=== PATIENT | male | born 1970 | race Caucasian/White ===

== ENCOUNTER 2017-03-23 10:36 | Observation (INO) | payer OTHER ==
--- NOTE | 2017-03-23 11:04 | PDOC ---
History of Present Illness - General History Source: Patient Exam Limitations: No Limitations - History of Present Illness Initial Comments: 03/23/17 13:51 The patient is a 46 year old male, with a significant past medical history of Hyperlipidemia who presents to the emergency department with diarrhea and abdominal pain for the past 3 days. Patient reports lower abdominal pain, 4/10 in severity, non radiating associated nausea and diarrhea. Patient note bloody diarrhea (bright red) in the toilet when defecating. Patient had never experienced this before and presents to the ED for further evaluation.Patient denies any recent abx use, new changes in diet or recent travel. Patient denies chest pain, headache or dizziness. Patient denies fever, chills, vomit, or constipation. Patient denies dysuria, frequency, urgency or hematuria. Patient denies sick contacts or recent travel. Allergies: NKA Past surgical history: None Social history: Former smoker (20 yrs ago) PCP: Racheal Whitmore <Vangie Holland - Last Filed: 03/23/17 13:51> <Zara Cespedes - Last Filed: 03/23/17 16:43> - General Chief Complaint: Pain, Acute Stated Complaint: DIARRHEA/rectal bleeding Time Seen by Provider: 03/23/17 10:57 Past History <Vangie Holland - Last Filed: 03/23/17 13:51> - Past Medical History Anemia: No Asthma: No Cancer: No CVA: No COPD: No CHF: No Dementia: No Diabetes: No GI Disorders: No Disorders: No HTN: No Hypercholesterolemia: Yes Liver Disease: No Seizures: No Thyroid Disease: No - Surgical History Abdominal Surgery: No Appendectomy: No Cardiac Surgery: No Cholecystectomy: No Lung Surgery: No Neurologic Surgery: No Orthopedic Surgery: No - Suicide/Smoking/Psychosocial Hx Smoking History: Never smoked Have you smoked in the past 12 months: No Number of Cigarettes Smoked Daily: 1 If you are a former smoker, when did you quit?: 20 YRS AGO Cigars Per Day: 0 Information on smoking cessation initiated: No Hx Alcohol Use: No Drug/Substance Use Hx: No Substance Use Type: None <Zara Cespedes - Last Filed: 03/23/17 16:43> - Past Medical History Allergies/Adverse Reactions: Allergies Allergy/AdvReac Type Severity Reaction Status Date / Time No Known Allergies Allergy Verified 03/23/17 10:43 Home Medications: Ambulatory Orders Atorvastatin Ca [Lipitor -] 10 mg PO HS 11/12/14 Review of Systems - Review of Systems Able to Perform ROS?: Yes Comments:: 03/23/17 13:51 GENERAL/CONSTITUTIONAL: No fever or chills. No weakness. HEAD, EYES, EARS, NOSE AND THROAT: No change in vision. No ear pain or discharge. No sore throat. GASTROINTESTINAL: ++nausea, diarrhea. No vomiting or constipation. GENITOURINARY: No dysuria, frequency, or change in urination. CARDIOVASCULAR: No chest pain or shortness of breath. RESPIRATORY: No cough, wheezing, or hemoptysis. MUSCULOSKELETAL: No joint or muscle swelling or pain. No neck or back pain. SKIN: No rash NEUROLOGIC: No headache, vertigo, loss of consciousness, or change in strength/ sensation. ENDOCRINE: No increased thirst. No abnormal weight change. HEMATOLOGIC/LYMPHATIC: No anemia, easy bleeding, or history of blood clots. ALLERGIC/IMMUNOLOGIC: No hives or skin allergy. <Vangie Holland - Last Filed: 03/23/17 13:51> *Physical Exam - Vital Signs Last Vital Signs Temp Pulse Resp BP Pulse Ox 98.3 F 101 H 19 120/67 99 03/23/17 10:43 03/23/17 10:43 03/23/17 10:43 03/23/17 10:43 03/23/17 10:43 - Physical Exam Comments: 03/23/17 13:52 GENERAL: Awake, alert, and fully oriented, in no acute distress HEAD: No signs of trauma EYES: PERRLA, EOMI, sclera anicteric, conjunctiva clear ENT: Auricles normal inspection, hearing grossly normal, nares patent, oropharynx clear without exudates. Moist mucosa NECK: Normal ROM, supple, no lymphadenopathy, JVD, or masses LUNGS: Breath sounds equal, clear to auscultation bilaterally. No wheezes, and no crackles HEART: Regular rate and rhythm, normal S1 and S2, no murmurs, rubs or gallops ABDOMEN: +Lower abdominal tenderness. normoactive bowel sounds. No guarding, no rebound. No masses EXTREMITIES: Normal range of motion, no edema. No clubbing or cyanosis. No cords, erythema, or tenderness NEUROLOGICAL: Cranial nerves II through XII grossly intact. Normal speech, normal gait SKIN: Warm, Dry, normal turgor, no rashes or lesions noted. RECTAL: No fissures. No external hemorrhoids. No masses. Light brown stool in the vault. <Vangie Holland - Last Filed: 03/23/17 13:51> - Vital Signs Last Vital Signs Temp Pulse Resp BP Pulse Ox 98.3 F 101 H 19 120/67 99 03/23/17 10:43 03/23/17 10:43 03/23/17 10:43 03/23/17 10:43 03/23/17 10:43 <Zara Cespedes - Last Filed: 03/23/17 16:43> ED Treatment Course - LABORATORY CBC & Chemistry Diagram: 03/23/17 12:32 03/23/17 12:32 - ADDITIONAL ORDERS Additional order review: Laboratory Results 03/23/17 03/23/17 03/23/17 12:37 12:32 12:32 PT with INR INR PTT (Actin FS) Sodium 140 Potassium 3.8 Chloride 105 Carbon Dioxide 26 Anion Gap 9 BUN 12 Creatinine 0.9 D Creat Clearance w eGFR > 60 Random Glucose 103 Lactic Acid 1.4 Calcium 8.6 Total Bilirubin 0.7 D AST 14 L ALT 31 Alkaline Phosphatase 80 Total Protein 7.1 Albumin 3.5 Lipase 157 Stool Occult Blood Negative 03/23/17 12:32 PT with INR 12.90 H INR 1.14 PTT (Actin FS) 24.9 L Sodium Potassium Chloride Carbon Dioxide Anion Gap BUN Creatinine Creat Clearance w eGFR Random Glucose Lactic Acid Calcium Total Bilirubin AST ALT Alkaline Phosphatase Total Protein Albumin Lipase Stool Occult Blood 03/23/17 12:32 RBC 4.84 MCV 87.9 MCHC 32.9 RDW 13.6 MPV 7.7 D Neutrophils % 80.4 Lymphocytes % 11.4 D Monocytes % 7.2 Eosinophils % 0.7 Basophils % 0.3 - Medications Given in the ED: ED Medications Discontinued Medications Generic Name Dose Route Start Last Admin Trade Name Freq PRN Reason Stop Dose Admin Sodium Chloride 1,000 ml 03/23/17 11:54 03/23/17 12:36 Normal Saline - IV 03/23/17 11:55 1,000 ml ONCE ONE Administration <Vangie Holland - Last Filed: 03/23/17 13:51> - LABORATORY CBC & Chemistry Diagram: 03/23/17 12:32 03/23/17 12:32 <Zara Cespedes - Last Filed: 03/23/17 16:43> Medical Decision Making - Medical Decision Making 03/23/17 12:10 a/p: 46yo male with rectal bleeding x 3 days -will check labs, lactate given pain with bleeding -will obtain abd ct -ivf hydration 03/23/17 16:41 pt with pancolitis on ct will start abx cultures will be ordered by IM discussed with Dorothy - will accept pt to obs pt updated and agrees to stay for iv abx and GI eval <Zara Cespedes - Last Filed: 03/23/17 16:43> *DC/Admit/Observation/Transfer - Attestations Scribe Attestion: 03/23/17 13:52 Documentation prepared by Vangie Holland, acting as medical director/head team physician for Zara Cespedes DO <Vangie Holland - Last Filed: 03/23/17 13:51> - Discharge Dispostion Admit: Yes - Attestations Physician Attestion: 03/23/17 16:43 I, Dr. Zara Cespedes DO, attest that this document has been prepared under my direction and personally reviewed by me in its entirety. I further attest, that it accurately reflects all work, treatment, procedures and medical decision -making performed by me. <Zara Cespedes - Last Filed: 03/23/17 16:43> Diagnosis at time of Disposition: Pancolitis - Discharge Dispostion Condition at time of disposition: Fair - Referrals Referrals: Racheal Mayfield MD [Primary Care Provider] - - Patient Instructions - Post Discharge Activity
[2017-03-23] MEDS ORDERED: SODIUM CHLORIDE 0.9% 1000 ML INFUS.BAG IV ONE ×2 (11:54→16:11)
[2017-03-23 12:45] LABS: BASO % 0.3 % (0-2.0); EOS % 0.7 % (0-4.5); MCH 28.9 pg (25.7-33.7); MCHC 32.9 g/dl (32.0-35.9); MEAN CELL VOLUME 87.9 fl (80-96); MEAN PLT VOLUME 7.7 fl (7.5-11.1); NEUT % 80.4 % (42.8-82.8); PLATELET COUNT 213 K/MM3 (134-434); RDW 13.6 % (11.9-15.9); WHITE BLOOD COUNT 10.2 K/mm3 (4.0-10.0)
[2017-03-23 13:03] LABS: INR 1.14 (0.82-1.09); PROTHROMBIN TIME (PATIENT) 12.9 SEC (9.98-11.88)
[2017-03-23 13:06] LABS: ACTIVATED PTT 24.9 SECONDS (26.9-34.4)
[2017-03-23 13:08] LABS: ALBUMIN 3.5 g/dl (3.4-5.0); ANION GAP 9 (8-16); CALCIUM 8.6 mg/dL (8.5-10.1); CO2 26 mmol/L (21-32); CREATININE 0.9 mg/dL (0.7-1.3); GLUCOSE,RANDOM 103 mg/dL (74-106); SGOT/AST 14 U/L (15-37); SGPT/ALT 31 U/L (12-78)
[2017-03-23 13:09] LABS: ALK PHOS 80 U/L (45-117); BILIRUBIN,TOTAL 0.7 mg/dL (0.2-1.0); TOT PROT 7.1 g/dl (6.4-8.2)
[2017-03-23] MEDS ORDERED: METRONIDAZOLE 500 MG PREMIXED 500 MG/100 ML MG IVPB ONE ×2 (16:11→16:25)
[2017-03-23] MEDS ORDERED: LEVOFLOXACIN 750 MG IVPB 750 MG/150 ML BAG IVPB ONE ×2 (16:11→16:25)
[2017-03-23] MEDS ORDERED: ACETAMINOPHEN 325 MG TABLET (FP) PO PRN (16:36)
[2017-03-23] MEDS: DEXTROSE 5%-0.45% SALINE 1,000 ML IV SCH (17:20)
[2017-03-23 17:52] LABS: URINE APPEARANCE CLEAR; URINE BILIRUBIN NEGATIVE (NEGATIVE); URINE BLOOD NEGATIVE (NEGATIVE); URINE COLOR LTYELLOW; URINE GLUCOSE (UA) NEGATIVE (NEGATIVE); URINE KETONE NEGATIVE (NEGATIVE); URINE LEUK ESTERASE NEGATIVE (NEGATIVE); URINE NITRITE NEGATIVE (NEGATIVE); URINE PROTEIN NEGATIVE (NEGATIVE); URINE UROBILINOGEN NEGATIVE mg/dL (0.2-1.0)
[2017-03-23 21:12] LABS: URINE LEUK ESTERASE Negative (NEGATIVE)
[2017-03-23] MEDS: ATORVASTATIN CA 10 MG TABLET (FP) PO SCH (21:23)
[2017-03-23 22:12] VITALS: BMI 33.2
[2017-03-24] MEDS: DEXTROSE 5%-0.45% SALINE 1,000 ML IV SCH (03:41)
--- NOTE | 2017-03-24 07:02 | HP ---
CHIEF COMPLAINT: Diarrhea PCP: Dr. Bartlett HISTORY OF PRESENT ILLNESS: 47 year-old male with a PMH of hyperlipidemia. Presents to ED with a complaint of diarrhea x 3 days, and with episodes of bloody diarrhea x 1 day. Patient recalls eating egg whites and vegetables prior to the onset of diarrhea which others ate as well and did not become ill. Patient was seen at [facility] emergency department yesterday, treated and released. Patient states he has five episodes of diarrhea while in ED. Patient states he has had chills. Patient states he was once told he had a gastric ulcer but he has never had an EGD or colonoscopy. He takes daily omeprazole. ER course was notable for: (1) Hgb 14 (2) Occut stool negative (3) Levofloxacin IV x 1; metronidazole IV x 1 Recent Travel: No PAST MEDICAL HISTORY: Hyperlipidemia Gastric ulcer PAST SURGICAL HISTORY: None reported Social History: Smoking: no Alcohol: social Drugs: no Family History: Mother age 22 of unknown cause; father 45 ETOH-related ; brother a&w; sister with DM Allergies No Known Allergies Allergy (Verified 03/23/17 10:43) HOME MEDICATIONS: Home Medications Medication Instructions Recorded Atorvastatin Ca [Lipitor -] 10 mg PO HS 11/12/14 Aspirin [ASA -] 81 mg PO PRN PRN 03/23/17 Omeprazole 40 mg PO DAILY 03/23/17 REVIEW OF SYSTEMS CONSTITUTIONAL: Present: chills Absent: fever, diaphoresis, generalized weakness, malaise, loss of appetite, weight change HEENT: Absent: rhinorrhea, nasal congestion, throat pain, throat swelling, difficulty swallowing, mouth swelling, ear pain, eye pain, visual changes CARDIOVASCULAR: Absent: chest pain, syncope, palpitations, irregular heart rate, lightheadedness , peripheral edema RESPIRATORY: Absent: cough, shortness of breath, dyspnea with exertion, orthopnea, wheezing, stridor, hemoptysis GASTROINTESTINAL: Present: bloody diarrhea Absent: abdominal pain, abdominal distension, nausea, vomiting, constipation, melena, hematochezia GENITOURINARY: Absent: dysuria, frequency, urgency, hesitancy, hematuria, flank pain, genital pain MUSCULOSKELETAL: Absent: myalgia, arthralgia, joint swelling, back pain, neck pain SKIN: Absent: rash, itching, pallor HEMATOLOGIC/IMMUNOLOGIC: Absent: easy bleeding, easy bruising, lymphadenopathy, frequent infections ENDOCRINE: Absent: unexplained weight gain, unexplained weight loss, heat intolerance, cold intolerance NEUROLOGIC: Absent: headache, focal weakness or paresthesias, dizziness, unsteady gait, seizure, mental status changes, bladder or bowel incontinence PSYCHIATRIC: Absent: anxiety, depression, suicidal or homicidal ideation, hallucinations. PHYSICAL EXAMINATION Vital Signs - 24 hr 03/23/17 03/23/17 03/23/17 10:43 17:00 21:45 Temperature 98.3 F 98.2 F Pulse Rate 101 H 75 Pulse Rate [ 88 Left] Respiratory 19 16 20 Rate Blood Pressure 120/67 104/59 Blood Pressure 118/60 [Arm] O2 Sat by Pulse 99 99 98 Oximetry (%) 03/24/17 06:32 Temperature 98.1 F Pulse Rate 79 Pulse Rate [ Left] Respiratory 20 Rate Blood Pressure 98/60 Blood Pressure [Arm] O2 Sat by Pulse Oximetry (%) GENERAL: Awake, alert, and fully oriented, in no acute distress. HEAD: Normal with no signs of trauma. EYES: Pupils equal, round and reactive to light, extraocular movements intact, sclera anicteric, conjunctiva clear. No lid lag. EARS, NOSE, THROAT: Ears normal, nares patent, oropharynx clear without exudates. Moist mucous membranes. NECK: Normal range of motion, supple without lymphadenopathy, JVD, or masses. LUNGS: Breath sounds equal, clear to auscultation bilaterally. No wheezes, and no crackles. No accessory muscle use. HEART: Regular rate and rhythm, normal S1 and S2 without murmur, rub or gallop. ABDOMEN: Diffusely tender, no guarding, no rebound; + bowel sounds MUSCULOSKELETAL: Normal range of motion at all joints. No bony deformities or tenderness. No CVA tenderness. UPPER EXTREMITIES: 2+ pulses, warm, well-perfused. No cyanosis. No clubbing. No peripheral edema. LOWER EXTREMITIES: 2+ pulses, warm, well-perfused. No calf tenderness. No peripheral edema. NEUROLOGICAL: Cranial nerves II-XII intact. Normal speech. Laboratory Results - last 24 hr 03/23/17 03/23/17 03/23/17 12:32 12:32 12:32 WBC RBC Hgb Hct MCV MCH MCHC RDW Plt Count MPV Neutrophils % Lymphocytes % Monocytes % Eosinophils % Basophils % PT with INR 12.90 H INR 1.14 PTT (Actin FS) 24.9 L Sodium 140 Potassium 3.8 Chloride 105 Carbon Dioxide 26 Anion Gap 9 BUN 12 Creatinine 0.9 D Creat Clearance w eGFR > 60 Random Glucose 103 Lactic Acid 1.4 Calcium 8.6 Total Bilirubin 0.7 D AST 14 L ALT 31 Alkaline Phosphatase 80 Total Protein 7.1 Albumin 3.5 Lipase 157 Urine Color Urine Appearance Urine pH Urine Protein Urine Glucose (UA) Urine Ketones Urine Blood Urine Nitrite Urine Bilirubin Urine Urobilinogen Ur Leukocyte Esterase Stool Occult Blood Blood Type Antibody Screen 03/23/17 03/23/17 03/23/17 12:32 12:37 12:37 WBC 10.2 H RBC 4.84 Hgb 14.0 Hct 42.6 MCV 87.9 MCH 28.9 MCHC 32.9 RDW 13.6 Plt Count 213 MPV 7.7 D Neutrophils % 80.4 Lymphocytes % 11.4 D Monocytes % 7.2 Eosinophils % 0.7 Basophils % 0.3 PT with INR INR PTT (Actin FS) Sodium Potassium Chloride Carbon Dioxide Anion Gap BUN Creatinine Creat Clearance w eGFR Random Glucose Lactic Acid Calcium Total Bilirubin AST ALT Alkaline Phosphatase Total Protein Albumin Lipase Urine Color Urine Appearance Urine pH Urine Protein Urine Glucose (UA) Urine Ketones Urine Blood Urine Nitrite Urine Bilirubin Urine Urobilinogen Ur Leukocyte Esterase Stool Occult Blood Negative Blood Type A POSITIVE Antibody Screen Negative 03/23/17 03/23/17 12:46 17:15 WBC RBC Hgb Hct MCV MCH MCHC RDW Plt Count MPV Neutrophils % Lymphocytes % Monocytes % Eosinophils % Basophils % PT with INR INR PTT (Actin FS) Sodium Potassium Chloride Carbon Dioxide Anion Gap BUN Creatinine Creat Clearance w eGFR Random Glucose Lactic Acid Calcium Total Bilirubin AST ALT Alkaline Phosphatase Total Protein Albumin Lipase Urine Color Ltyellow Urine Appearance Clear Urine pH 5.0 Urine Protein Negative Urine Glucose (UA) Negative Urine Ketones Negative Urine Blood Negative Urine Nitrite Negative Urine Bilirubin Negative Urine Urobilinogen Negative Ur Leukocyte Esterase Negative Stool Occult Blood Blood Type A POSITIVE Antibody Screen ASSESSMENT/PLAN 47 year-old male with a PMH of hyperlipidemia and gastric ulcer. Placed on observation for diarrhea. Infectious Diarrhea --patient reports some episodes with blood, some with no blood --Hgb stable, occult stool negative --continue levofloxacin and flagyl --IV fluids --GI consult pending Hyperlipidemia --continue Lipitor Gastric ulcer --continue protonix
--- NOTE | 2017-03-24 07:57 | CON.GI ---
Consult Consult Specialty:: GI - History of Present Illness History of Present Illness: A 46 yom with dyslipidemia developed blood diarrhea and lower abdominal pain 3 days ago. Acute onset, w/o fever, chills, nausea, vomiting, rash, joint, back, eye symptoms. No jaundice, dysphagia, odynophagia, or dyspepsia. No hx of weigth loss, chronic diarrhea, or GI issues in general. Frequent fast food. [facility]s [facility]. No exposure to ill, traveling outside of the . No new medications, ETOH, elicit drugs. No family histroy of IBD. - History Source History Provided By: Patient - Past Medical History Cardio/Vascular: Yes: Hyperlipdemia - Past Surgical History Past Surgical History: Yes: None - Alcohol/Substance Use Hx Alcohol Use: Yes (twice a week) - Smoking History Smoking history: Former smoker Have you smoked in the past 12 months: No Aproximately how many cigarettes per day: 1 If you are a former smoker, when did you quit?: 20 YRS AGO Home Medications - Allergies Allergies/Adverse Reactions: Allergies Allergy/AdvReac Type Severity Reaction Status Date / Time No Known Allergies Allergy Verified 03/23/17 10:43 - Home Medications Home Medications: Ambulatory Orders Atorvastatin Ca [Lipitor -] 10 mg PO HS 11/12/14 Aspirin [ASA -] 81 mg PO PRN PRN 03/23/17 Omeprazole 40 mg PO DAILY 03/23/17 Family Disease History - Family Disease History Family History: Unremarkable Review of Systems Findings/Remarks: please refer to H&P and HPI Physical Exam-GI Vital Signs: Vital Signs Temperature 98.1 F 03/24/17 06:32 Pulse Rate 79 03/24/17 06:32 Respiratory Rate 20 03/24/17 06:32 Blood Pressure 98/60 03/24/17 06:32 O2 Sat by Pulse Oximetry (%) 98 03/23/17 21:45 Constitutional: Yes: Well Nourished, No Distress, Calm Eyes: Yes: Conjunctiva Clear HENT: Yes: Atraumatic Neck: Yes: Supple Cardiovascular: Yes: Regular Rate and Rhythm Respiratory: Yes: Regular ...Auscultate: Yes: Normoactive Bowel Sounds ...Palpate: Yes: Soft, Tenderness (generalized, lower abdomen). No: Firm/Rigid , Guarding Neurological: Yes: Alert, Oriented Labs: INR, PTT INR 1.14 (0.82-1.09) 03/23/17 12:32 CBCD WBC 6.6 K/mm3 (4.0-10.0) D 03/24/17 06:30 RBC 4.27 M/mm3 (4.00-5.60) 03/24/17 06:30 Hgb 12.5 GM/dL (11.7-16.9) D 03/24/17 06:30 Hct 37.5 % (35.4-49) 03/24/17 06:30 MCV 87.8 fl (80-96) 03/24/17 06:30 MCHC 33.5 g/dl (32.0-35.9) 03/24/17 06:30 RDW 13.8 % (11.9-15.9) 03/24/17 06:30 Plt Count 200 K/MM3 (134-434) 03/24/17 06:30 MPV 8.0 fl (7.5-11.1) 03/24/17 06:30 CMP Sodium 141 mmol/L (136-145) 03/24/17 06:30 Potassium 3.4 mmol/L (3.5-5.1) L 03/24/17 06:30 Chloride 109 mmol/L (98-107) H 03/24/17 06:30 Carbon Dioxide 23 mmol/L (21-32) 03/24/17 06:30 Anion Gap 9 (8-16) 03/24/17 06:30 BUN 6 mg/dL (7-18) L D 03/24/17 06:30 Creatinine 0.7 mg/dL (0.7-1.3) D 03/24/17 06:30 Creat Clearance w eGFR > 60 (>60) 03/24/17 06:30 Calcium 7.4 mg/dL (8.5-10.1) L 03/24/17 06:30 Total Bilirubin 0.8 mg/dL (0.2-1.0) 03/24/17 06:30 AST 8 U/L (15-37) L D 03/24/17 06:30 ALT 22 U/L (12-78) D 03/24/17 06:30 Alkaline Phosphatase 66 U/L (45-117) 03/24/17 06:30 Total Protein 5.7 g/dl (6.4-8.2) L 03/24/17 06:30 Albumin 2.7 g/dl (3.4-5.0) L D 03/24/17 06:30 Imaging - Results Cat Scan: Report Reviewed Problem List - Problems (1) Hematochezia Code(s): K92.1 - MELENA (2) Pancolitis Code(s): K51.00 - ULCERATIVE (CHRONIC) PANCOLITIS WITHOUT COMPLICATIONS Assessment/Plan Acute onset. Likely infectious. Doubt ischemia, or IBD at this point. Will need colonsocopy in 4-6 weeks, or sooner if not improving Follow stool work up BRAT diet PO hydration Observe
[2017-03-24 08:12] LABS: BASO % 0.4 % (0-2.0); EOS % 4.3 % (0-4.5); MCH 29.4 pg (25.7-33.7); MCHC 33.5 g/dl (32.0-35.9); MEAN CELL VOLUME 87.8 fl (80-96); NEUT % 59.7 % (42.8-82.8); PLATELET COUNT 200 K/MM3 (134-434); RDW 13.8 % (11.9-15.9); WHITE BLOOD COUNT 6.6 K/mm3 (4.0-10.0)
[2017-03-24 08:46] LABS: ALBUMIN 2.7 g/dl (3.4-5.0); ALK PHOS 66 U/L (45-117); ANION GAP 9 (8-16); BILIRUBIN,TOTAL 0.8 mg/dL (0.2-1.0); CALCIUM 7.4 mg/dL (8.5-10.1); CO2 23 mmol/L (21-32); CREATININE 0.7 mg/dL (0.7-1.3); GLUCOSE,RANDOM 134 mg/dL (74-106); MAGNESIUM 2.1 mg/dL (1.8-2.4); SGOT/AST 8 U/L (15-37); SGPT/ALT 22 U/L (12-78); TOT PROT 5.7 g/dl (6.4-8.2)
[2017-03-24] MEDS ORDERED: POTASSIUM CHLORIDE TABS 20 MEQ TABLET.ER (FP) PO ONE (13:34)
--- NOTE | 2017-03-24 13:59 | PN ---
Physical Exam: SUBJECTIVE: Patient seen and examined. One episode of diarrhea overnight and two today. Feels better. OBJECTIVE: Vital Signs Period Temp Pulse Resp BP Sys/Cook Pulse Ox Last 24 Hr 98.1 F-98.2 F 75-88 16-20 98-118/59-60 98-99 GENERAL: Awake, alert, and fully oriented, in no acute distress. LUNGS: Breath sounds equal, clear to auscultation bilaterally. No wheezes, and no crackles. No accessory muscle use. HEART: Regular rate and rhythm, normal S1 and S2 without murmur, rub or gallop. ABDOMEN: Mild diffuse tenderness, no guarding, no rebound; + bowel sounds MUSCULOSKELETAL: Normal range of motion at all joints. No bony deformities or tenderness. No CVA tenderness. UPPER EXTREMITIES: 2+ pulses, warm, well-perfused. No cyanosis. No clubbing. No peripheral edema. LOWER EXTREMITIES: 2+ pulses, warm, well-perfused. No calf tenderness. No peripheral edema. NEUROLOGICAL: Cranial nerves II-XII intact. Normal speech. Laboratory Results - last 24 hr 03/23/17 03/23/17 03/23/17 12:37 12:46 17:15 WBC RBC Hgb Hct MCV MCH MCHC RDW Plt Count MPV Neutrophils % Lymphocytes % Monocytes % Eosinophils % Basophils % Sodium Potassium Chloride Carbon Dioxide Anion Gap BUN Creatinine Creat Clearance w eGFR Random Glucose Calcium Magnesium Total Bilirubin AST ALT Alkaline Phosphatase Total Protein Albumin Lipase Urine Color Ltyellow Urine Appearance Clear Urine pH 5.0 Urine Protein Negative Urine Glucose (UA) Negative Urine Ketones Negative Urine Blood Negative Urine Nitrite Negative Urine Bilirubin Negative Urine Urobilinogen Negative Ur Leukocyte Esterase Negative Blood Type A POSITIVE A POSITIVE Antibody Screen Negative 03/24/17 03/24/17 06:30 06:30 WBC 6.6 D RBC 4.27 Hgb 12.5 D Hct 37.5 MCV 87.8 MCH 29.4 MCHC 33.5 RDW 13.8 Plt Count 200 MPV 8.0 Neutrophils % 59.7 D Lymphocytes % 25.7 D Monocytes % 9.9 Eosinophils % 4.3 D Basophils % 0.4 Sodium 141 Potassium 3.4 L Chloride 109 H Carbon Dioxide 23 Anion Gap 9 BUN 6 L D Creatinine 0.7 D Creat Clearance w eGFR > 60 Random Glucose 134 H D Calcium 7.4 L Magnesium 2.1 Total Bilirubin 0.8 AST 8 L D ALT 22 D Alkaline Phosphatase 66 Total Protein 5.7 L Albumin 2.7 L D Lipase 153 Urine Color Urine Appearance Urine pH Urine Protein Urine Glucose (UA) Urine Ketones Urine Blood Urine Nitrite Urine Bilirubin Urine Urobilinogen Ur Leukocyte Esterase Blood Type Antibody Screen Active Medications Generic Name Dose Route Start Last Admin Trade Name Freq PRN Reason Stop Dose Admin Acetaminophen 650 mg 03/23/17 16:36 03/23/17 21:23 Tylenol - PO 650 mg Q6H PRN Administration FEVER OR PAIN Atorvastatin Calcium 10 mg 03/23/17 22:00 03/23/17 21:23 Lipitor - PO 10 mg HS LUPIS Administration Levofloxacin 500 mg 03/24/17 14:00 Levaquin - PO DAILY@0600 [facility] Metronidazole 500 mg 03/24/17 14:00 Flagyl - PO TID [facility] Pantoprazole Sodium 40 mg 03/24/17 14:00 Protonix - PO DAILY [facility] Microbiology 03/24/17 10:15 Stool Clostridium difficile Antigen (AZRA) - Final 03/24/17 10:15 Stool Clostridium difficile Toxin Assay - Final ASSESSMENT/PLAN 47 year-old male with a PMH of hyperlipidemia and gastric ulcer. Placed on observation for diarrhea. Infectious Diarrhea --patient reports some episodes with blood, some with no blood --seen and evaluated by GI, likely infectious process but no fever, no leukocytosis --Hgb stable, occult stool negative --c. diff negative --switch to PO levofloxacin and flagyl for discharge planning --supportive care: PO hydration, BRAT diet Hyperlipidemia --continue Lipitor Gastric ulcer --continue protonix DVT prophylaxis: oob, ambulation Dispo: continue to observe, likely discharge in am on PO antibiotics. Follow up with Dr. Villar. Visit type - Emergency Visit Emergency Visit: Yes ED Registration Date: 03/23/17 Care time: The patient presented to the Emergency Department on the above date and was hospitalized for further evaluation of their emergent condition. - New Patient This patient is new to me today: No - Critical Care Critical Care patient: No
[2017-03-24] MEDS: LEVOFLOXACIN 500 MG TABLET (FP) PO SCH (14:02)
[2017-03-24] MEDS: metroNIDAZOLE 250 MG TABLET PO SCH ×2 (14:02→21:09)
[2017-03-24] MEDS: PANTOPRAZOLE 40 MG TABLET (FP) PO SCH (14:03)
[2017-03-24] MEDS: ATORVASTATIN CA 10 MG TABLET (FP) PO SCH (21:09)
[2017-03-25] MEDS: metroNIDAZOLE 250 MG TABLET PO SCH ×3 (05:54→21:57)
[2017-03-25] MEDS: LEVOFLOXACIN 500 MG TABLET (FP) PO SCH (05:54)
[2017-03-25] MEDS: PANTOPRAZOLE 40 MG TABLET (FP) PO SCH (10:57)
--- NOTE | 2017-03-25 13:09 | PN ---
Progress Note, Physician History of Present Illness: Chart reviewed. No events. Bms better. No hematochezia - Current Medication List Current Medications: Active Medications Acetaminophen (Tylenol -) 650 mg PO Q6H PRN PRN Reason: FEVER OR PAIN Last Admin: 03/23/17 21:23 Dose: 650 mg Atorvastatin Calcium (Lipitor -) 10 mg PO HS [facility] Last Admin: 03/24/17 21:09 Dose: 10 mg Levofloxacin (Levaquin -) 500 mg PO DAILY@0600 [facility] Last Admin: 03/25/17 05:54 Dose: 500 mg Metronidazole (Flagyl -) 500 mg PO TID [facility] Last Admin: 03/25/17 05:54 Dose: 500 mg Pantoprazole Sodium (Protonix -) 40 mg PO DAILY [facility] Last Admin: 03/25/17 10:57 Dose: 40 mg - Objective Vital Signs: Vital Signs Temperature 97.5 F L 03/25/17 06:29 Pulse Rate 66 03/25/17 06:29 Respiratory Rate 20 03/25/17 06:29 Blood Pressure 96/58 03/25/17 06:29 O2 Sat by Pulse Oximetry (%) 98 03/24/17 22:00 Constitutional: Yes: No Distress, Calm HENT: Yes: Atraumatic Neck: Yes: Supple Cardiovascular: Yes: Regular Rate and Rhythm Respiratory: Yes: Regular Gastrointestinal: Yes: Normal Bowel Sounds, Soft. No: Melena, Rectal Bleeding, Tenderness, Vomiting Neurological: Yes: Alert, Oriented Labs: CBC, BMP 03/24/17 06:30 03/24/17 06:30 INR, PTT INR 1.14 (0.82-1.09) 03/23/17 12:32 Problem List - Problems (1) Hematochezia Code(s): K92.1 - MELENA (2) Pancolitis Code(s): K51.00 - ULCERATIVE (CHRONIC) PANCOLITIS WITHOUT COMPLICATIONS Assessment/Plan Acute onset. Likely infectious. Doubt ischemia, or IBD at this point. stool work up negative BRAT diet discussed with the patient PO hydration Observe Will need colonoscopy in 4-6 weeks
--- NOTE | 2017-03-25 20:00 | PN ---
Physical Exam: SUBJECTIVE: Patient seen and examined. He has lower abdominal pain, he is tolerating brat diet. no nausea, vomiting, further diarrhea, fever, chills OBJECTIVE: Vital Signs Period Temp Pulse Resp BP Sys/Cook Pulse Ox Last 24 Hr 97.5 F-98.1 F 66-78 16-20 96-109/57-61 98 Pe Neuro: alert, awake, cn 2-12intact Pulm: Clear, regular no sob CV: s1 s2 rrr Abd: lower abd tenderness w/ palpation,soft +bs Ext: no le edema Active Medications Generic Name Dose Route Start Last Admin Trade Name Freq PRN Reason Stop Dose Admin Acetaminophen 650 mg 03/23/17 16:36 03/23/17 21:23 Tylenol - PO 650 mg Q6H PRN Administration FEVER OR PAIN Atorvastatin Calcium 10 mg 03/23/17 22:00 03/24/17 21:09 Lipitor - PO 10 mg HS LUPIS Administration Levofloxacin 500 mg 03/24/17 14:00 03/25/17 05:54 Levaquin - PO 500 mg DAILY@0600 LUPIS Administration Metronidazole 500 mg 03/24/17 14:00 03/25/17 13:47 Flagyl - PO 500 mg TID LUPIS Administration Pantoprazole Sodium 40 mg 03/24/17 14:00 03/25/17 10:57 Protonix - PO 40 mg DAILY LUPIS Administration Assessment: 47 year old male with a PMH of hyperlipidemia and gastric ulcer admitted with abdominal pain Plan: 1. Pancolitis - Continue Levaquin/flagyl total of 10 days - Continue protonix - If abd pain less in am can dc home with outpt colonoscopy in 4-6 weeks - BRAT diet moving forward - Hgb stable, occult stool negative - C. diff negative 2. HLD -Continue Lipitor 3. Gastric ulcer - Continue protonix 4. DVT prophylaxis: oob, ambulation Visit type - Emergency Visit Emergency Visit: Yes ED Registration Date: 03/23/17 Care time: The patient presented to the Emergency Department on the above date and was hospitalized for further evaluation of their emergent condition. - New Patient This patient is new to me today: Yes Date on this admission: 03/25/17 - Critical Care Critical Care patient: No
[2017-03-25] MEDS: ATORVASTATIN CA 10 MG TABLET (FP) PO SCH (21:57)
[2017-03-26] MEDS ORDERED: DEXTROSE 5%-NORMAL SALINE 1,000 ML IV SCH (06:45)
[2017-03-26] MEDS: metroNIDAZOLE 250 MG TABLET PO SCH (06:57)
[2017-03-26] MEDS: LEVOFLOXACIN 500 MG TABLET (FP) PO SCH (06:57)
[2017-03-26] MEDS: PANTOPRAZOLE 40 MG TABLET (FP) PO SCH (10:13)
--- NOTE | 2017-03-26 10:54 | DS ---
Physical Exam: SUBJECTIVE: Patient seen and examined. he feels well, abd tenderness improved from yesterday, ready to go home OBJECTIVE: Vital Signs Period Temp Pulse Resp BP Sys/Cook Pulse Ox Last 24 Hr 97.5 F-98.4 F 67-78 16-20 100-109/56-61 98 PE Neuro: alert, awake, cn 2-12intact Pulm: Clear, regular no sob CV: s1 s2 rrr Abd: lower abd tenderness - improve, + bs soft Ext: no le edema HOSPITAL COURSE: Date of Admission:03/23/17 Date of Discharge: 03/26/17 Minutes to complete discharge: 38 Discharge Summary Reason For Visit: ULCERATIVE PANCOLITIS Current Active Problems Hematochezia (Acute) Pancolitis (Acute) Hospital Course: Initial Hospital Course: Briefly, this 47 year old male with a PMH of hyperlipidemia presented to the ED with a complaint of diarrhea x 3 days, and with episodes of bloody diarrhea x 1 day. Patient recalled eating egg whites and vegetables prior to the onset of diarrhea which others ate as well and did not become ill. Seen at [facility] emergency department the day prior to admission he was treated and released. Subsequently sustained x5 episodes of diarrhea while in ED, associated wih chills. Patient states he was once told he had a gastric ulcer but he has never had an EGD or colonoscopy. He takes daily omeprazole. Subsequent Hospital Course/Progress Note/DC summary: Plan: 1. Pancolitis - Continue Levaquin/flagyl total of 10 days - Continue protonix - Outpt colonoscopy in 4-6 weeks - BRAT diet moving forward - Hgb stable, occult stool negative - C. diff negative - GI referral made 2. HLD -Continue Lipitor 3. Gastric ulcer - Continue protonix Dispo: - Home with above meds and follow up - Pt aware and agrees to above plan Condition: Stable - Instructions Diet, Activity, Other Instructions: Please return to the ED for any new, persistent, or worsening symptoms. Follow up with your PCP in 1 week Follow up with Dr. Villar (GI doctor) in 4-6 weeks for colonoscopy Complete antibiotics as directed Continue eating the BRAT diet Referrals: Jesse Villar MD [Staff Physician] - Racheal Mayfield MD [Primary Care Provider] - Disposition: HOME - Home Medications Comprehensive Discharge Medication List: Ambulatory Orders Atorvastatin Ca [Lipitor -] 10 mg PO HS 11/12/14 Aspirin [ASA -] 81 mg PO PRN PRN 03/23/17 Omeprazole 40 mg PO DAILY 03/23/17 Levofloxacin [Levaquin -] 500 mg PO DAILY #7 tablet 03/26/17 Metronidazole [Flagyl -] 500 mg PO TID #24 tablet 03/26/17 This patient is new to me today: No Emergency Visit: Yes ED Registration Date: 03/23/17 Care time: The patient presented to the Emergency Department on the above date and was hospitalized for further evaluation of their emergent condition. Critical Care patient: No - Discharge Referral Referred to [facility] Med P.C.: No
--- NOTE | 2017-03-26 11:34 | PN ---
Progress Note, Physician History of Present Illness: Chart reviewed. No events. Bms better. No hematochezia - Current Medication List Current Medications: Active Medications Acetaminophen (Tylenol -) 650 mg PO Q6H PRN PRN Reason: FEVER OR PAIN Last Admin: 03/23/17 21:23 Dose: 650 mg Atorvastatin Calcium (Lipitor -) 10 mg PO HS [facility] Last Admin: 03/25/17 21:57 Dose: 10 mg Levofloxacin (Levaquin -) 500 mg PO DAILY@0600 [facility] Last Admin: 03/26/17 06:57 Dose: 500 mg Metronidazole (Flagyl -) 500 mg PO TID [facility] Last Admin: 03/26/17 06:57 Dose: 500 mg Pantoprazole Sodium (Protonix -) 40 mg PO DAILY [facility] Last Admin: 03/26/17 10:13 Dose: 40 mg - Objective Vital Signs: Vital Signs Temperature 98.3 F 03/26/17 06:00 Pulse Rate 67 03/26/17 06:00 Respiratory Rate 18 03/26/17 06:00 Blood Pressure 107/56 03/26/17 06:00 O2 Sat by Pulse Oximetry (%) 98 03/26/17 02:00 Constitutional: Yes: No Distress, Calm Eyes: Yes: Conjunctiva Clear HENT: Yes: Atraumatic Neck: Yes: Supple Cardiovascular: Yes: Regular Rate and Rhythm Respiratory: Yes: Regular Gastrointestinal: Yes: Soft. No: Melena, Rectal Bleeding, Tenderness, Vomiting Neurological: Yes: Alert, Oriented Labs: CBC, BMP 03/24/17 06:30 03/24/17 06:30 INR, PTT INR 1.14 (0.82-1.09) 03/23/17 12:32 Problem List - Problems (1) Hematochezia Code(s): K92.1 - MELENA Assessment/Plan BRAT diet, advance as tolerated PO hydration complete total of 10 days of Abx Follow up as op in 1 week. Will need colonoscopy in 4-6 weeks discussed with the patient
[2017-03-26 12:11] VITALS: BP 111/70; PULSE 63; TEMP 98
== END 2017-03-26 12:24 | disposition home or self-care (01) ==
LOC: JER 10:36 → JERBED 16:43 → J8W 18:55
PROVIDERS: ADMIT Hospitalist; ATTEND Nurse Practitioner Acute Care
PROC: 3E03329 Introduction of Other Anti-infective into Peripheral Vein, Percutaneous Approach (ICD-10-PCS; principal; 2017-03-23)
PROC: 3E0337Z Introduction of Electrolytic and Water Balance Substance into Peripheral Vein, Percutaneous Approach (ICD-10-PCS; 2017-03-23)
DX: K51.00 Ulcerative (chronic) pancolitis without complications (principal); A09 Infectious gastroenteritis and colitis, unspecified; E78.5 Hyperlipidemia, unspecified; K25.9 Gastric ulcer, unspecified as acute or chronic, without hemorrhage or perforation; K92.1 Melena
CPT/HCPCS: 36415; 74177-TC; 80053; 81003; 82272; 83605; 83690; 83735; 85025; 85610; 85730; 86850; 86900; 86901; 87040; 87086; 87324; 87449; 96365; 96376; 99284-25; G0378

== ENCOUNTER 2017-08-18 15:24 | Emergency (ER) | payer OTHER ==
--- NOTE | 2017-08-18 15:29 | PDOC ---
Rapid Medical Evaluation Time Seen by Provider: 08/18/17 15:26 Medical Evaluation: Allergies Allergy/AdvReac Type Severity Reaction Status Date / Time No Known Allergies Allergy Verified 03/23/17 10:43 08/18/17 15:26 I have performed a brief in-person evaluation of this patient. The patient presents with a chief complaint of: chest pain worse w/ palpation and movement since yesterday. H/o HLD Pertinent physical exam findings:stable w/ reproducible ttp to L chest I have ordered the following:ekg The patient will proceed to the ED for further evaluation. Discharge Disposition - Diagnosis Chest pain Qualifiers: Chest pain type: unspecified Qualified Code(s): R07.9 - Chest pain, unspecified - Referrals - Patient Instructions - Post Discharge Activity
[2017-08-18 15:30] VITALS: BP 132/83; PULSE 73; TEMP 97.9; BMI 32.5
--- NOTE | 2017-08-18 15:56 | PDOC ---
History of Present Illness - General History Source: Patient Exam Limitations: No Limitations - History of Present Illness Initial Comments: 08/18/17 16:14 The patient is a 46 year old male, with a significant past medical history of hyperlipidemia, who presents to the emergency department with intermittent left sided chest pain since 7PM yesterday with associated nausea. 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 He reportedly developed a sudden onset of left sided anterior chest pain after leaving work. He reportedly went home and tried to sleep, but reports trouble sleeping secondary to the pain. He reports the pain is localized, nonradiating, 5/10 and pressure like. He states the pain went away this morning, but reports the pain presented again after a few hours of working in the kitchen today. He states he experienced chest pain in the past, but that the last time was sharp pain with associated SOB. He denies SOB or sharp pain. He also states he is not fatigues today like he was with his last episode of chest pain. Secondarily, he states he is in the process of scheduling an endoscopy with his GI doctor for a possible ulcer. He denies, shortness of breath, headache and dizziness. He denies fever, chills , vomit, diarrhea and constipation. He denies dysuria, frequency, urgency and hematuria. Allergies: NKDA Past surgical history: none reported Family Hx: mother of KS at age 26 Social history: social ETOH. no tobacco or illicit drugs PCP: Tran Stoll <Britney Rodas - Last Filed: 08/18/17 16:14> - General History Source: Patient Exam Limitations: No Limitations <Cinthya Ledezma - Last Filed: 08/18/17 18:17> - General Chief Complaint: Chest Pain Stated Complaint: CHEST PAIN Time Seen by Provider: 08/18/17 15:26 Past History <Britney Rodas - Last Filed: 08/18/17 16:14> - Past Medical History Anemia: No Asthma: No Cancer: No Cardiac Disorders: Yes (occassional chest pain) CVA: No COPD: No CHF: No Dementia: No Diabetes: No GI Disorders: No Disorders: No HTN: No Hypercholesterolemia: Yes Liver Disease: No Seizures: No Thyroid Disease: No - Surgical History Abdominal Surgery: No Appendectomy: No Cardiac Surgery: No Cholecystectomy: No Lung Surgery: No Neurologic Surgery: No Orthopedic Surgery: No - Suicide/Smoking/Psychosocial Hx Smoking History: Former smoker Have you smoked in the past 12 months: No Number of Cigarettes Smoked Daily: 1 If you are a former smoker, when did you quit?: 20 YRS AGO Cigars Per Day: 0 Information on smoking cessation initiated: No Hx Alcohol Use: No Drug/Substance Use Hx: No Substance Use Type: None Hx Substance Use Treatment: No <Cinthya Ledezma - Last Filed: 08/18/17 18:17> - Past Medical History Allergies/Adverse Reactions: Allergies Allergy/AdvReac Type Severity Reaction Status Date / Time No Known Allergies Allergy Verified 08/18/17 15:30 Home Medications: Ambulatory Orders Atorvastatin Ca [Lipitor -] 10 mg PO HS 11/12/14 Aspirin [ASA -] 81 mg PO PRN PRN 03/23/17 Omeprazole 40 mg PO DAILY 03/23/17 Review of Systems - Review of Systems Able to Perform ROS?: Yes Comments:: 08/18/17 16:15 CONSTITUTIONAL: Absent: fever, no chills, no fatigue EYES: Absent: visual changes ENT: Absent: ear pain, no sore throat CARDIOVASCULAR: (+) chest pain, Absent: no palpitations RESPIRATORY: Absent: cough, no SOB GASTROINTESTINAL: Absent: abdominal pain, no nausea, no vomiting, no constipation, no diarrhea GENITOURINARY: Absent: dysuria, no frequency, no hematuria MUSCULOSKELETAL: Absent: back pain, no arthralgia, no myalgia SKIN: Absent: rash NEURO: Absent: headache <Britney Rodas - Last Filed: 08/18/17 16:14> *Physical Exam - Vital Signs Last Vital Signs Temp Pulse Resp BP Pulse Ox 97.9 F 73 18 132/83 100 08/18/17 15:27 08/18/17 15:27 08/18/17 15:27 08/18/17 15:27 08/18/17 15:27 - Physical Exam Comments: 08/18/17 16:15 GENERAL: The patient is in no acute distress. HEAD: Normal with no signs of trauma. EYES: PERRLA, EOMI, sclera anicteric, conjunctiva clear. ENT: Ears normal, nares patent, oropharynx clear without exudates. Moist mucous membranes. NECK: Normal range of motion, supple without lymphadenopathy, JVD, or masses. LUNGS: Breath sounds equal, clear to auscultation bilaterally. No wheezes, and no crackles. HEART:Regular rate and rhythm, normal S1 and S2 without murmur, rub or gallop. CHEST: (+) tender to palpation to left sternal border. ABDOMEN: Soft, nontender, normoactive bowel sounds. No guarding, no rebound. No masses palpable. EXTREMITIES: Normal range of motion, no edema. No clubbing or cyanosis. No erythema, or tenderness. NEUROLOGICAL: Cranial nerves II through XII grossly intact. Normal speech. No focal neurological deficits. MUSCULOSKELETAL: Back non-tender to palpation, no CVA tenderness SKIN: Warm, Dry, normal turgor, no rashes or lesions noted. <Britney Rodas - Last Filed: 08/18/17 16:14> - Vital Signs Last Vital Signs Temp Pulse Resp BP Pulse Ox 97.9 F 73 18 132/83 100 08/18/17 15:27 08/18/17 15:27 08/18/17 15:27 08/18/17 15:27 08/18/17 15:27 <Cinthya Ledezma - Last Filed: 08/18/17 18:17> ED Treatment Course - Medications Given in the ED: ED Medications Discontinued Medications Generic Name Dose Route Start Last Admin Trade Name Yohannesq PRN Reason Stop Dose Admin Ibuprofen 600 mg 08/18/17 16:07 08/18/17 16:13 Motrin - PO 08/18/17 16:08 600 mg ONCE ONE Administration <Britney Rodas - Last Filed: 08/18/17 16:14> - LABORATORY CBC & Chemistry Diagram: 08/18/17 16:13 08/18/17 16:13 <Cinthya Ledezma - Last Filed: 08/18/17 18:17> Medical Decision Making - Medical Decision Making 08/18/17 17:32 Mr. Danielson is a 46-year-old male who presents emergency department with a complaint of abdominal pain, nausea, vomiting. He has a consultative past medical history which includes, multiple small bowel obstructions, diverting colostomy which was reversed after 3 years, history of a right-sided hemicolectomy in the setting of small bowel obstruction. He has a history of severe rash chronic pancreatitis, pancreatic pseudocyst with resulting pancreatic dysfunction and diabetes. He has a history of coronary artery disease status post KS and stenting, most recent stents placed her patient in June (however he is cardiac catheterization card says April 2016). Patient presents emergency department with a complaint of diffuse abdominal pain which began yesterday. He's noted intractable vomiting, hasn't unable to tolerate by mouth. Patient has had a paucity of gas. He reports no fever, does have chills. On examination: Regular rate and rhythm Lungs are clear Abdomen is diffusely tender to palpation, no voluntary guarding, no rebound Differential diagnosis includes: Small bowel obstruction Pancreatitis Colitis Will do: Labs, EKG,CT abd and pelvis EKG: NSR, rate of 67 bpm, axis nml, intervals nml, prominent t waves, Laboratory Tests 08/18/17 16:13 Sodium 142 Potassium 4.0 Chloride 108 H Carbon Dioxide 27 Creatinine 0.8 Random Glucose 159 H 08/18/17 17:43 Laboratory Tests 08/18/17 16:13 BUN 20 H D Creatinine 0.8 Creatine Kinase 195 Troponin I < 0.02 Will discharge to home Pt state he feels much better Clinical Impression: atypical chest pain, initial presentation <Cinthya Ledezma - Last Filed: 08/18/17 18:17> *DC/Admit/Observation/Transfer - Attestations Scribe Attestion: 08/18/17 16:16 Documentation prepared by Britney Rodas, acting as registered medical transcriptionist for Cinthya Ledezma MD <Britney Rodas - Last Filed: 08/18/17 16:14> - Discharge Dispostion Decision to Admit order: No <Cinthya Ledezma - Last Filed: 08/18/17 18:17> Diagnosis at time of Disposition: Chest pain Qualifiers: Chest pain type: unspecified Qualified Code(s): R07.9 - Chest pain, unspecified - Discharge Dispostion Disposition: HOME Condition at time of disposition: Stable - Referrals Referrals: Racheal Mayfield MD [Primary Care Provider] - - Patient Instructions Printed Discharge Instructions: DI for Atypical Chest Pain, DI for Chest Pain Additional Instructions: Thanks for coming in to the ER today Please be sure follow up with your primary care physician within 1 week Return to the ER for any new concerns or complaints Please review your lab results you can take motrin as needed for pain - Post Discharge Activity Forms/Work/School Notes: Back to Work
[2017-08-18] MEDS ORDERED: IBUPROFEN 600 MG TABLET (FP) PO ONE ×2 (16:07→16:16)
[2017-08-18 16:32] LABS: BASO % 0.9 % (0-2.0); EOS % 2.1 % (0-4.5); HEMATOCRIT 41.9 % (35.4-49); LYMPH % 29.3 % (8-40); MCHC 33.3 g/dl (32.0-35.9); MEAN CELL VOLUME 90.1 fl (80-96); MEAN PLT VOLUME 9.1 fl (7.5-11.1); MONO % 6.2 % (3.8-10.2); NEUT % 61.5 % (42.8-82.8); PLATELET COUNT 235 K/MM3 (134-434); RBC 4.65 M/mm3 (4.00-5.60); RDW 13.8 % (11.9-15.9); WHITE BLOOD COUNT 6.6 K/mm3 (4.0-10.0)
[2017-08-18 16:59] LABS: ALBUMIN 3.9 g/dl (3.4-5.0); ANION GAP 7 (8-16); BILIRUBIN,TOTAL 0.6 mg/dL (0.2-1.0); CALCIUM 8.5 mg/dL (8.5-10.1); CHLORIDE 108 mmol/L (98-107); CO2 27 mmol/L (21-32); CREATININE 0.8 mg/dL (0.7-1.3); GLUCOSE,RANDOM 159 mg/dL (74-106); SGOT/AST 16 U/L (15-37); SODIUM 142 mmol/L (136-145); TOT PROT 7.4 g/dl (6.4-8.2)
[2017-08-18 17:39] LABS: ALK PHOS 76 U/L (45-117); BLOOD UREA NITROGEN 20 mg/dL (7-18); SGPT/ALT 38 U/L (12-78)
--- NOTE | 2017-08-19 11:58 | EKG ---
Test Reason : Blood Pressure : / mmHG Vent. Rate : 074 BPM Atrial Rate : 074 BPM P-R Int : 144 ms QRS Dur : 086 ms QT Int : 392 ms P-R-T Axes : 043 058 049 degrees QTc Int : 435 ms NORMAL SINUS RHYTHM NORMAL ECG WHEN COMPARED WITH ECG OF 12-NOV-2014 14:05, NO SIGNIFICANT CHANGE WAS FOUND Confirmed by KM MERRITT MD ([id number]) on 08/19/2017 11:58:39 AM Referred By: Confirmed By:KM MERRITT MD
== END 2017-08-18 18:27 | disposition home or self-care (01) ==
LOC: JER 15:24 → SUPCPDRO 15:24 → JER 18:27
DX: R07.9 Chest pain, unspecified (principal)
CPT/HCPCS: 36415; 71046-TC-FY; 80053; 82550; 82553; 84484; 85025; 93005; 93010; 99285-25